=== PATIENT | female | born 1995 | race Caucasian/White ===

== ENCOUNTER → 2016-07-08 | Outpatient (REF) ==
[~2016-07-08] VITALS: Ht 160 cm; Wt 56.8 kg
[~2016-07-08] MED LIST: TRILEPTAL 300M300 MG PO; TRINESSA 281 TAB PO; ZOLOFT 50MG50 MG PO
[2016-07-08 23:00] VITALS: BP 127/66; PULSE 101; TEMP 97.8
== END ==
LOC: COL.ER 22:36 → EDSTATUS 23:13
DX: Z02.89 Encounter for other administrative examinations (principal)